=== PATIENT | male | born 1950 | race Hispanic/Latino ===

== ENCOUNTER 2017-02-22 09:29 | Outpatient (CLI) | payer MEDICARE, OTHER ==
--- NOTE | 2017-02-22 11:21 | XRay Report ---
ROUTINE CHEST, TWO VIEWS: Respiratory difficulty. PA and lateral views demonstrate the heart and mediastinal contour to be of normal size and shape. The lungs are clear and fully expanded and the soft tissues and bony structures are normal. There is no interval change compared to a prior exam in May 2007. IMPRESSION: Normal study.
== END 2017-02-22 09:30 | disposition home or self-care (01) ==
LOC: SPVIMAG 09:29
PROVIDERS: ATTEND Internal Medicine
DX: J40 Bronchitis, not specified as acute or chronic (principal)
CPT/HCPCS: 71020